=== PATIENT | female | born 1960 | race Caucasian/White ===

== ENCOUNTER 2018-10-19 07:06 | Emergency (ER) | payer OTHER ==
[2018-10-19] MEDS ORDERED: NS 1,000 ML IV ONE (07:37)
--- NOTE | 2018-10-19 07:37 | EDPHY ---
H & P Time Seen by Provider: 10/19/18 07:36 HPI/ROS: Chief complaint. Generalized pain, weakness HPI. 57-year-old female with complaint sore hip for a long time. 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 She has neck and upper back pain. There has been no trauma. She has felt she has had spasm around her shoulders. Her hip continues to bother her however she has had no recent injury. She has been using Tylenol with inadequate relief. She tells me her PCP has made referrals but she has been unable to make the connection. Patient denies fever or cough. No chest pain or shortness of breath. Nausea without abdominal pain. Previous x-ray of her hip shows impingement or arthritis. ROS 10 systems were reviewed and negative with the exception of the elements mentioned in the history of present illness Past Medical/Surgical History: Chronic pain Social History: , nonsmoker, no alcohol Smoking Status: Never smoked Physical Exam: General Appearance: Alert well-developed tearful female mild distress. Vital signs are stable Eyes: Pupils equal and round no pallor or injection. ENT, Mouth: Mucous membranes are moist. Respiratory: There are no retractions, lungs are clear to auscultation. Cardiovascular: Regular rate and rhythm. Gastrointestinal: Abdomen is soft and nontender, no masses, bowel sounds normal. Neurological: Awake and alert, sensory and motor exams grossly normal. Skin: Warm and dry, no rashes. Musculoskeletal: Neck is supple nontender. Muscular tenderness between both shoulder blades. Palpation recreates her muscle pain and tension. Some tenderness in the low back to the right of the lumbar spine Extremities symmetrical, full range of motion. Painful range of motion right hip Psychiatric: Patient is oriented X 3, there is no agitation. Constitutional: Initial Vital Signs Temperature (C) 36.8 C 10/19/18 07:13 Heart Rate 79 10/19/18 07:13 Respiratory Rate 14 10/19/18 07:13 Blood Pressure 150/86 H 10/19/18 07:13 O2 Sat (%) 95 10/19/18 07:13 O2 Delivery Mode Room Air Allergies/Adverse Reactions: amoxicillin Allergy (Verified 10/19/18 07:12) epinephrine Allergy (Verified 10/19/18 07:12) erythromycin base Allergy (Verified 10/19/18 07:12) Home Medications: Medication Instructions Recorded Diazepam [Valium] 5 mg PO Q6PRN PRN #10 tab 10/19/18 Gabapentin [Neurontin 300 MG (*)] 300 mg PO HS #20 cap 10/19/18 Medical Decision Making - Diagnostics Imaging Results: Imaging Impressions Hip X-Ray 10/19/18 07:54 Impression: Negative except for minimal osteoarthritis. Lumbar Spine X-Ray 10/19/18 07:54 Impression: 1. No fracture or bone lesion. 2. Degenerative disk disease at L1-L2 and grade 1 spondylolisthesis at L1-L2 and L5-S1. Procedures: IV normal saline. Valium orally. Zofran for nausea ED Course/Re-evaluation: Re-evaluation 8:45 a.m.. Patient is improved. Patient and I discussed laboratory evaluation, imaging study results. We discussed her pill rolling tremor and stiffness and that I think that this may be related to Parkinson's disease. She told me that a urine half ago she was told by neurologist that she had Parkinson's but did not believe the physician and has never taken any medication. She and I discussed treatment plan including criteria for return and importance of follow-up and further evaluation. She expresses understanding and agreement I consulted discussed the case with Dr. Garcia for Neurology. He will see the patient in his office in consultation. He recommends gabapentin 300 mg at bedtime for her chronic pain and stiffness. Differential Diagnosis: Chronic pain without evidence of acute medical problem. Normal sed rate and C reactive protein going again systemic inflammation. No evidence of significant low back or problems. I suspect that the patient really does have Parkinson's that explains pain stiffness and pill rolling movement. - Data Points Laboratory Results: Laboratory Results 10/19/18 07:30 10/19/18 07:30 10/19/18 10/19/18 10/19/18 08:15 07:44 07:30 WBC RBC Hgb Hct MCV MCH MCHC RDW Plt Count MPV Neut % (Auto) Lymph % (Auto) [place] % (Auto) Eos % (Auto) Baso % (Auto) Nucleat RBC Rel Count Absolute Neuts (auto) Absolute Lymphs (auto) Absolute Monos (auto) Absolute Eos (auto) Absolute Basos (auto) Absolute Nucleated RBC Immature Gran % Immature Gran # ESR Sodium 137 mEq/L mEq/L (135-145) Potassium 4.1 mEq/L mEq/L (3.5-5.2) Chloride 103 mEq/L mEq/L (97-110) Carbon Dioxide 22 mEq/l mEq/l (22-31) Anion Gap 12 mEq/L mEq/L (6-14) BUN 13 mg/dL mg/dL (7-23) Creatinine 0.7 mg/dL mg/dL (0.6-1.0) Estimated GFR > 60 Glucose 104 mg/dL H mg/dL (70-100) Calcium 9.9 mg/dL mg/dL (8.5-10.4) Total Bilirubin 0.8 mg/dL mg/dL (0.1-1.4) Conjugated Bilirubin 0.1 mg/dL mg/dL (0.0-0.5) Unconjugated Bilirubin 0.7 mg/dL mg/dL (0.0-1.1) AST 28 IU/L IU/L (14-46) ALT 30 IU/L IU/L (9-52) Alkaline Phosphatase 76 IU/L IU/L (38-126) POC Troponin I 0.00 ng/mL ng/mL (0.00-0.08) C-Reactive Protein < 5.0 mg/L mg/L (<10.0) Total Protein 7.8 g/dL g/dL (6.3-8.2) Albumin 4.8 g/dL g/dL (3.5-5.0) Lipase 121 IU/L IU/L (23-300) Urine Color Pending Urine Appearance Pending Urine pH Pending Ur Specific [place] Pending Urine Protein Pending Urine Ketones Pending Urine Blood Pending Urine Nitrate Pending Urine Bilirubin Pending Urine Urobilinogen Pending Ur Leukocyte Esterase Pending Urine RBC Pending Urine WBC Pending Ur Epithelial Cells Pending Urine Glucose Pending 10/19/18 07:30 WBC 6.16 10^3/uL 10^3/uL (3.80-9.50) RBC 4.42 10^6/uL 10^6/uL (4.18-5.33) Hgb 13.5 g/dL g/dL (12.6-16.3) Hct 40.3 % % (38.0-47.0) MCV 91.2 fL fL (81.5-99.8) MCH 30.5 pg pg (27.9-34.1) MCHC 33.5 g/dL g/dL (32.4-36.7) RDW 11.9 % % (11.5-15.2) Plt Count 271 10^3/uL 10^3/uL (150-400) MPV 10.6 fL fL (8.7-11.7) Neut % (Auto) 70.3 % % (39.3-74.2) Lymph % (Auto) 23.1 % % (15.0-45.0) [place] % (Auto) 5.4 % % (4.5-13.0) Eos % (Auto) 0.3 % L % (0.6-7.6) Baso % (Auto) 0.6 % % (0.3-1.7) Nucleat RBC Rel Count 0.0 % % (0.0-0.2) Absolute Neuts (auto) 4.33 10^3/uL 10^3/uL (1.70-6.50) Absolute Lymphs (auto) 1.42 10^3/uL 10^3/uL (1.00-3.00) Absolute Monos (auto) 0.33 10^3/uL 10^3/uL (0.30-0.80) Absolute Eos (auto) 0.02 10^3/uL L 10^3/uL (0.03-0.40) Absolute Basos (auto) 0.04 10^3/uL 10^3/uL (0.02-0.10) Absolute Nucleated RBC 0.00 10^3/uL 10^3/uL (0-0.01) Immature Gran % 0.3 % % (0.0-1.1) Immature Gran # 0.02 10^3/uL 10^3/uL (0.00-0.10) ESR 5 MM/HR MM/HR (0-30) Sodium Potassium Chloride Carbon Dioxide Anion Gap BUN Creatinine Estimated GFR Glucose Calcium Total Bilirubin Conjugated Bilirubin Unconjugated Bilirubin AST ALT Alkaline Phosphatase POC Troponin I C-Reactive Protein Total Protein Albumin Lipase Urine Color Urine Appearance Urine pH Ur Specific [place] Urine Protein Urine Ketones Urine Blood Urine Nitrate Urine Bilirubin Urine Urobilinogen Ur Leukocyte Esterase Urine RBC Urine WBC Ur Epithelial Cells Urine Glucose Medications Given: Discontinued Medications Diazepam (Valium) 5 mg PO EDNOW ONE Stop: 10/19/18 07:55 Last Admin: 10/19/18 08:10 Dose: 5 mg Sodium Chloride (Ns) 1,000 mls @ 0 mls/hr IV EDNOW ONE; Wide Open PRN Reason: Protocol Stop: 10/19/18 07:38 Last Admin: 10/19/18 08:00 Dose: 1,000 mls Miscellaneous Medication (Icy Hot Lidocaine/Menthol 4%/1% Patch) 1 patch TD EDNOW ONE Stop: 10/19/18 07:55 Last Admin: 10/19/18 08:13 Dose: Not Given Point of Care Test Results: Chemistry 10/19/18 07:44 POC Troponin I 0.00 ng/mL ng/mL (0.00-0.08) Departure - Departure Disposition: Home, Routine, Self-Care Clinical Impression: Chronic pain Condition: Good Instructions: Pain Management in Older Adults (DC) Additional Instructions: Valium 1 pill every 6-8 hours to help with stiffness. Gabapentin 300 mg at bedtime to help with pain and stiffness Return for worsening symptoms. Dr. Garcia is a neurologist and will see you in his office. Please call for an appointment Has your regular physician will not call you back I am giving you the name of local physician for further evaluation Referrals: NONE *PRIMARY CARE P,. [Primary Care Provider] - As per Instructions Suly Goodrich MD [Medical Doctor] - 2-3 days, call for appt. Raghav Luke DO [Medical Doctor] - 2-3 days, call for appt. Prescriptions: Diazepam [Valium] 5 mg PO Q6PRN PRN #10 tab PRN Reason: For Muscle Spasms Gabapentin [Neurontin 300 MG (*)] 300 mg PO HS #20 cap
[2018-10-19] MEDS ORDERED: LIDOCAINE 4%/MENTHOL 1% PATCH TD ONE (07:54)
[2018-10-19] MEDS ORDERED: DIAZEPAM 5 MG TAB PO ONE (07:54)
[2018-10-19 07:56] LABS: PLATELET COUNT 271 10^3/uL (150-400)
[2018-10-19 09:35] VITALS: BP 144/76
[2018-10-19] MEDS ORDERED: PATCH REMOVAL 1 EA PATCH TD SCH (21:00)
== END 2018-10-19 09:41 | disposition home or self-care (01) ==
DX: R52 Pain, unspecified (principal); R53.1 Weakness
CPT/HCPCS: 84484-ER